=== PATIENT | male | born 1985 | race Two or more races ===

== ENCOUNTER 2019-08-03 09:48 | Emergency (ER) | payer OTHER ==
[~2019-08-03] VITALS: Ht 182.9 cm; Wt 108.9 kg
--- NOTE | 2019-08-03 09:55 | NUR ---
Patient ambulated to bed 7. RN evaluating patient at bedside.
[2019-08-03 09:58] VITALS: BP 146/91
--- NOTE | 2019-08-03 09:58 | NUR ---
PT BIB SELF C/O PRESSURE HEADACE X6 MONTHS FROM 1600 UNTIL HE GOES TO SLEEP EVERY DAY ALONG WITH NUMBNESS TO LT ARM AND LT UPPER LIP. DENIES PAIN AT THIS TIME. TX W/ ASPIRIN W/ SOME RELIEF. AAOX4, COOPERATIVE, FACIAL SYMMETRY INTACT, HAND B[employer]ING[employer]ANT EQUAL/STONG, GAIT STEADY, MEMORY INTACT, SPEECH CLEAR, PERRLA. PT REPORTS DUST ALLERGIES. - N/V OR FEVER. VSS. ER TO SEE PT. PMH:DENIES RX:ASPRIN
--- NOTE | 2019-08-03 10:24 | NUR ---
Dr. Granados is evaluating the patient at bedside.
[2019-08-03 10:50] VITALS: BP 146/91
--- NOTE | 2019-08-03 10:50 | NUR ---
Patient discharged with v/s stable. Written and verbal after care instructions given and explained. Patient alert, oriented and verbalized understanding of instructions. Ambulatory with steady gait. All questions addressed prior to discharge. ID band removed. Patient advised to follow up with PMD. Rx of TYLENOL, MAGNESIUM, AND VITAMIN B-2 given. Patient educated on indication of medication including possible reaction and side effects. Opportunity to ask questions provided and answered.
== END 2019-08-03 10:50 | disposition home or self-care (01) ==
LOC: MED 09:48
DX: R51 Headache (principal); R20.0 Anesthesia of skin; M43.6 Torticollis
CPT/HCPCS: 99282